=== PATIENT | female | born 1985 | race Hispanic/Latino ===

== ENCOUNTER 2021-04-26 08:46 | Observation (INO) | payer BC ==
[~2021-04-26 08:46] MED LIST: PREN-68 PO
== END 2021-04-26 11:38 | disposition home or self-care (01) ==
LOC: LDH 08:46
PROVIDERS: ADMIT Specialist; ATTEND Specialist
DX: Z34.93 Encounter for supervision of normal pregnancy, unspecified, third trimester (principal); Z87.891 Personal history of nicotine dependence; Z3A.32 32 weeks gestation of pregnancy
CPT/HCPCS: 59025; 76819; G0378 ×2

== ENCOUNTER 2021-06-18 16:17 | Emergency (ER) | payer BC ==
[~2021-06-18] VITALS: Ht 167.6 cm; Wt 97.5 kg
[~2021-06-18 16:17] MED LIST changes: +CALC-131 PO
[2021-06-18 16:22] VITALS: BP 128/79
[2021-06-18 16:40] LABS: APPEARANCE,URINE CLOUDY (CLEAR); BILIRUBIN,URINE NEGATIVE (NEGATIVE); COLOR,URINE YELLOW (YELLOW); GLUCOSE, URINE (UA) NEGATIVE (NEGATIVE); KETONES,URINE NEGATIVE (NEGATIVE); LEUKOCYTE ESTERASE ,URINE LARGE (NEGATIVE); NITRATE,URINE POSITIVE (NEGATIVE); OCCULT BLOOD,URINE LARGE (NEGATIVE); PH,URINE 6.5 (5.0-8.0); PROTEIN,URINE 100 mg/dL (NEGATIVE)
[2021-06-18 16:50] LABS: HCG,QUAL RESULT POSITIVE (NEGATIVE)
[2021-06-18 16:52] LABS: BACTERIA,URINE Few /HPF (None Seen); WBC,URINE 51-100 /HPF (0-1)
[2021-06-18 16:53] LABS: SQUAMOUS EPITHELIAL CELL,UR Few /HPF (0-2)
[2021-06-18] MEDS ORDERED: ACETAMINOPHEN 500 MG TABLET PO ONE (17:00)
[2021-06-18] MEDS ORDERED: IBUPROFEN 800 MG TAB PO ONE (17:00)
[2021-06-18] MEDS ORDERED: 0.9%NACL 1000ML 1,000 ML IV SCH (17:00)
[2021-06-18] MEDS ORDERED: IBUPROFEN 800 MG TAB ONE (17:13)
[2021-06-18] MEDS ORDERED: ACETAMINOPHEN 500 MG TABLET ONE (17:13)
[2021-06-18] MEDS ORDERED: 0.9%NACL 1000ML 1,000 ML IV ONE (17:14)
[2021-06-18 17:15] LABS: BASOPHILS % (AUTO) 0.2 % (0.0-5.0); EOSINOPHILS % (AUTO) 0.1 % (0.0-8.0); HEMATOCRIT 39.2 % (36-48); LYMPHOCYTES % (AUTO) 3.1 % (21.0-51.0); MEAN CORPUSCULAR HEMOGLOBIN 29.7 pg (27.0-33.0); MEAN CORPUSCULAR HGB CONC 32.9 g/dL (32.0-36.0); MEAN CORPUSCULAR VOLUME 90.1 fL (79-99); MONOCYTES % (AUTO) 3.2 % (3.0-13.0); NEUTROPHILS % (AUTO) 92.9 % (40.0-77.0); PLATELET COUNT (AUTO) 178 K/uL (130-400); RED BLOOD CELL COUNT(AUTO) 4.35 MIL/uL (4.00-5.50); RED CELL DISTRIBUTION WIDTH 13.1 % (11.0-15.5); WHITE BLOOD COUNT (AUTO) 13.2 K/uL (4.8-10.8)
[2021-06-18 17:26] LABS: CREATININE 0.7 mg/dL (0.5-1.5); POTASSIUM 3.4 mmol/L (3.5-5.1)
[2021-06-18 17:30] LABS: ALBUMIN 2.9 g/dL (3.5-5.0); BILIRUBIN,TOTAL 0.9 mg/dL (0.2-1.0); TOTAL PROTEIN, SERUM 6.8 g/dL (6.0-8.3)
[2021-06-18] MEDS ORDERED: CEFTRIAXONE 1G VIAL IVP ONE (17:30)
[2021-06-18] MEDS ORDERED: CEPH500B PO (17:47)
[2021-06-18] MEDS ORDERED: PHEN-847 PO (17:47)
[2021-06-18] MEDS ORDERED: POTASSIUM BICARB/CIT AC 25 MEQ TABLET.EFF ONE (17:50)
[2021-06-18] MEDS ORDERED: POTASSIUM BICARB/CIT AC 25 MEQ TABLET.EFF PO ONE (18:00)
[2021-06-23] MEDS ORDERED: VANTIN PO (11:29)
[2021-06-23] MEDS ORDERED: FURO10SO PO (11:31)
[2021-06-23] MEDS ORDERED: POTA-202 PO (11:32)
== END 2021-06-18 18:14 | disposition home or self-care (01) ==
LOC: EDH 16:17
DX: N12 Tubulo-interstitial nephritis, not specified as acute or chronic (principal); E86.0 Dehydration; Z79.1 Long term (current) use of non-steroidal anti-inflammatories (NSAID); Z87.440 Personal history of urinary (tract) infections; E66.9 Obesity, unspecified; Z68.34 Body mass index [BMI] 34.0-34.9, adult
CPT/HCPCS: 36415; 80053; 81001; 81025; 82550; 83605; 84484; 85025; 87040 ×2; 87077 ×2; 87088; 87186 ×2; 96361; 96374; 99284; J0696; J7030